=== PATIENT | male | born 1960 | race Caucasian/White ===

== ENCOUNTER → 2018-09-03 | Outpatient (CLI) | payer OTHER ==
[~2018-09-03] MED LIST: CYCL-277 PO; MECL25TA9 PO; SUMA100T32 PO; SUMA100T33 PO; VER100 PO; VERA180T53 PO
== END ==
LOC: AUD 08:10
PROVIDERS: ATTEND Otolaryngology
DX: R42 Dizziness and giddiness (principal)
CPT/HCPCS: 92542; 92557; 92570

== ENCOUNTER 2019-03-31 00:01 | Day surgery (SDC) | payer OTHER ==
[~2019-03-31] VITALS: Ht 185.4 cm; Wt 74.8 kg
[~2019-03-31 00:01] MED LIST changes: -VERA180T53 PO; +VERA180T57 PO
[2019-03-31] MEDS ORDERED: ceFAZolin(*) 2GM/D5W 50ML 50 ML IVPB ONE (07:00)
[2019-03-31] MEDS ORDERED: NORMOSOL R SOLN(*) 1000 ML BAG 1,000 ML IV PRN (07:00)
[2019-03-31] MEDS ORDERED: LIDOCAINE/SOD BICARB 8.4% SYR ID ONE (07:00)
[2019-03-31] MEDS ORDERED: FAMOTIDINE 20 MG TAB PO ONE (07:00)
[2019-03-31] MEDS ORDERED: MIDAZOLAM 2 MG/2 ML VIAL IVP PRN (07:00)
[2019-03-31] MEDS ORDERED: APREPITANT 40 MG CAP PO ONE (07:15)
[2019-03-31 07:20] VITALS: BP 121/87
--- NOTE | 2019-03-31 07:22 | EKG ---
FACILITY: PATIENT NAME: KURTIS NUGENT : [id number] MR: [id number] V: [id number] EXAM DATE: ORDERING PHYSICIAN: VARINDER BECKER TECHNOLOGIST: MILES Car Reason : PRE-OP Blood Pressure : / mmHG Vent. Rate : 056 BPM Atrial Rate : 056 BPM P-R Int : 178 ms QRS Dur : 106 ms QT Int : 424 ms P-R-T Axes : 058 077 042 degrees QTc Int : 409 ms Sinus bradycardia Possible left atrial enlargement Nonspecific interventricular conduction delay Borderline ECG No previous ECGs available Confirmed by JERAMIE GOMEZ ([id number]) on 03/31/2019 3:00:41 PM Referred By: BESSY Confirmed By:JERAMIE GOMEZ
[2019-03-31] MEDS ORDERED: fentaNYL CITR 100 MCG/2 ML AMP ONE (07:26)
[2019-03-31] MEDS ORDERED: PROPOFOL EMUL(*) 10MG/ML 20 ML 20 ML ONE (07:30)
[2019-03-31] MEDS ORDERED: DEXAMETHASONE SOD PHOS 10MG/ML ONE (07:30)
[2019-03-31] MEDS ORDERED: ONDANSETRON 4 MG/2 ML VIAL ONE (07:30)
[2019-03-31] MEDS ORDERED: LIDOCAINE MPF 1% 5 ML VIAL ONE (07:30)
[2019-03-31] MEDS ORDERED: KETAMINE HCL-NS 50 MG/5 ML SYR ONE (07:30)
[2019-03-31] MEDS ORDERED: BUPIVACAINE/EPI 0.5% 50ML VIAL INFIL ONE (07:46)
[2019-03-31] MEDS ORDERED: ACETAMINOPHEN(*)1000 MG/100 ML 100 ML IVPB ONE (07:49)
[2019-03-31] MEDS ORDERED: HALOPERIDOL LACT 5 MG/ML VIAL IM ONE (07:49)
[2019-03-31] MEDS ORDERED: SUGAMMADEX SOD 200 MG/2 ML SDV ONE (08:19)
[2019-03-31] MEDS ORDERED: KETOROLAC 30 MG/ML VIAL ONE (08:59)
--- NOTE | 2019-03-31 09:36 | Short(Outpt) Discharge Summary ---
Discharge Summary Reason for Hosp/Final Diag: (1) Left inguinal hernia Hospital Course & Plan: pt presented for left inguinal hernia repair with mesh. he tolerated the procedure well. he will be discharged home when criteria met. Discharge Instructions Home Meds Active Scripts Meclizine Hcl (MECLIZINE HCL) 25 Mg Tablet, 25 MG PO TID PRN for dizziness, #30 TAB 3 Refills Prov:YONATHAN BRENNER MD 07/31/18 Sumatriptan Succinate (SUMATRIPTAN SUCCINATE) 100 Mg Tablet, 1 TAB PO ONCE PRN for HEADACHE, #18 TAB 3 Refills take 1 tab prior to Head ache , may repeat in 2 hours. Max of 2 tabs in 24 hours. Prov:YONATHAN BRENNER MD 02/06/18 Verapamil Hcl (VERAPAMIL ER) 180 Mg Tablet.er, 180 MG PO QDAY, #90 TAB 3 Refills Prov:YONATHAN BRENNER MD 02/06/18 Diet: Regular Activity: No Heavy Lifting Special Instructions: no lifting more than 15 lbs for 3 wks. ok to shower tomorrow. f/u dr. casie walsh 2 wks ([phone]) AZALEA WALSH March 31, 2019 09:36
--- NOTE | 2019-03-31 09:41 | Post Operative Progress Note ---
Post Operative Progress Note Date: March 31, 2019 Time: 09:36 Surgeon: dr. casie walsh #[id number] [employer] Teacher: none Anesthesia: gen, local dr. butler Pre-Op Diagnosis: left ing hernia Post-Op Diagnosis: same Findings: left ing hernia Procedure(s): robotic left ing hernia repair with mesh Specimen Removed:(May be N/A): none Complications: none Estimated Blood Loss: minimal Date OP Note Dictated: March 31, 2019 Time OP Note Dictated: 09:37 AZALEA WALSH March 31, 2019 09:41
[2019-03-31 10:05] VITALS: BP 113/78
--- NOTE | 2019-03-31 10:27 | OPERATIVE REPORT 1 ---
EVENT DATE: March 31, 2019 SURGEON: Eduardo Farley MD ANESTHESIOLOGIST: Aldo Gorman MD ANESTHESIA: General and local. CARPENTER MOLD: None. PREOPERATIVE DIAGNOSIS Left inguinal hernia. POSTOPERATIVE DIAGNOSIS Left inguinal hernia. PROCEDURE PERFORMED Robotic left inguinal hernia repair with mesh. FLUIDS IV crystalloids. ESTIMATED BLOOD LOSS Minimal. SPECIMENS None. COMPLICATIONS None. INDICATIONS This is a 59-year old male with a left inguinal hernia that is bothersome to him. On physical exam, he is stable and he has a palpable left inguinal hernia that is small. Risks and benefits of the procedure were explained and consent was signed. DESCRIPTION OF PROCEDURE The patient was taken to the operating room and placed in the supine position. General anesthesia was administered per the Anesthesia team. The patient was prepped and draped in normal sterile fashion. A small incision was made above the umbilicus. The umbilical stump was grasped and elevated. Veress needle was inserted. Pneumoperitoneum was achieved. Veress needle was removed. An 8 mm port was advanced. After injecting local analgesia and under direct vision, a right-sided 8 mm port and a left-sided 8 mm port were placed. I inspected the abdomen. There was no injury upon entry. I placed the 10 x 15 cm ProGrip left-sided mesh as well as a V-Loc absorbable stitch. The robot was docked. Peritoneal flap was taken down with scissors. This was taken down to Silvestre's ligament. The hernia was a small indirect hernia and there was a very small direct hernia. These hernia sacs were completely reduced. Care was taken to protect the inferior epigastric vessels as well as the cord structures. Flap was taken down well below the level of the ileopubic tract. ProGrip mesh was made to lie flat and covered the myopectineal orifice. The peritoneal flap was reapproximated with a running absorbable V-Loc stitch. Hemostasis was assured. Instruments were removed and the robot was undocked. Ports were removed under direct vision. Hemostasis was assured. Final report was removed after a pneumoperitoneum was relieved. The fascia of the supraumbilical port site was closed with an 0 Vicryl stitch. All skin incisions were closed with 4-0 Monocryl subcuticular stitches. More local analgesia was injected. Appropriate dressings were applied. The patient tolerated the procedure well. There were no complications. MTDD
[2019-03-31 10:30] VITALS: BP 119/77
[2019-03-31 11:00] VITALS: BP 106/76
[2019-03-31 11:27] VITALS: BP 120/82
[2019-03-31 11:29] VITALS: BP 116/77
== END 2019-03-31 10:05 | disposition home or self-care (01) ==
LOC: OR 00:01
PROVIDERS: ATTEND Surgery
DX: K40.90 Unilateral inguinal hernia, without obstruction or gangrene, not specified as recurrent (principal); R00.1 Bradycardia, unspecified
CPT/HCPCS: 49650; 93005; C1781; J0131; J1100; J1630; J1885; J2001; J2250; J2405; J2704; J3010; J3490; J8501; S2900; J0690